=== PATIENT | female | born 1995 | race Caucasian/White ===

== ENCOUNTER 2016-12-28 14:02 | Inpatient (IN) | payer OTHER ==
[~2016-12-28] VITALS: Ht 165.1 cm; Wt 73.9 kg
[2016-12-28 15:34] LABS: HEMOGLOBIN 13.7 gm/dl (12.3-15.3); RED BLOOD COUNT 4.32 M/UL (4.00-5.10); WHITE BLOOD COUNT 11.8 K/UL (4.5-11.0)
[2016-12-30 03:51] LABS: HEMOGLOBIN 11.6 gm/dl (12.3-15.3)
[2016-12-31] MEDS ORDERED: COLACE 100MG C100 MG PO (08:56)
== END 2016-12-31 09:30 | disposition home or self-care (01) | DRG 775 ==
LOC: GENOP 14:02 → OB 15:01
PROVIDERS: Obstetrics & Gynecology; ADMIT Obstetrics & Gynecology
PROC: 10E0XZZ Delivery of Products of Conception, External Approach (ICD-10-PCS; principal; 2016-12-29)
PROC: 0UQGXZZ Repair Vagina, External Approach (ICD-10-PCS; 2016-12-29)
PROC: 10907ZC Drainage of Amniotic Fluid, Therapeutic from Products of Conception, Via Natural or Artificial Opening (ICD-10-PCS; 2016-12-29)
PROC: 3E0234Z Introduction of Serum, Toxoid and Vaccine into Muscle, Percutaneous Approach (ICD-10-PCS; 2016-12-29)
DX: O69.81X0 Labor and delivery complicated by cord around neck, without compression, not applicable or unspecified (principal); Z3A.38 38 weeks gestation of pregnancy; Z37.0 Single live birth; Z23 Encounter for immunization; O99.320 Drug use complicating pregnancy, unspecified trimester; F11.90 Opioid use, unspecified, uncomplicated; Z85.6 Personal history of leukemia
CPT/HCPCS: 36415; 51702; 82800; 85014; 85018; 85025; 90707; 90715; J2300; J2405; J2590; J2795; J3010; J7120; Q2039

== ENCOUNTER 2020-09-20 11:29 | Emergency (ER) | payer OTHER ==
[~2020-09-20 11:29] MED LIST: COLACE 100MG C100 MG PO; IMODIUM CAP 2 MG2 MG PO
== END 2020-09-20 16:37 | disposition left against medical advice (07) ==
LOC: ER1 11:29
DX: Z53.21 Procedure and treatment not carried out due to patient leaving prior to being seen by health care provider (principal)